=== PATIENT | female | born 1950 | race Caucasian/White ===

== ENCOUNTER 2018-08-10 08:18 | Day surgery (SDC) | payer MEDICARE, OTHER, SELFPAY ==
[2018-08-10] MEDS: PROPARACAINE 0.5% OPHTH SOL 2 DROPS EYE-OP (09:14)
[2018-08-10] MEDS: CATARACT EYE COMPOUND (10 DROPS/SYRINGE) 3 DROPS EYE-OP ×3 (09:16→09:31)
[2018-08-10 09:24] VITALS: BP 141/78; PULSE 59; RESP 14; TEMP 36.5; O2SAT 99; BMI 25.9
--- NOTE | 2018-08-10 10:05 | PM.PREOP ---
Pre-operative Note Interval Note History & Physical reviewed/Exam performed by Physician: No Changes to H&P: No
--- NOTE | 2018-08-10 10:07 | P.OP_ITS ---
Operative Date/Time/Diagnoses Pre-op diagnosis: Nuclear Cataract Left eye Post-op diagnosis: same Procedure & Clinicians Surgeon: Walt Salguero Anesthesia Type: MAC +/- and Sedation Operative Notes Procedure in detail: Patient brought to the operating suite. Tetracaine drops placed in the left eye. The marking instrument was used to jayda the vertical and horizontal meridians. Patient was prepped and draped in sterile manner. Wire lid speculum was placed in the eye. The marking instrument was used to jayda the 5 degree meridian. Betadine drops were placed on the eye. This was irrigated. Lidocaine jelly was placed on the eye. A paracentesis port was created with a side-port blade. 0.1 mL 1% preservative free lidocaine was injected into the anterior chamber. The anterior chamber was deepened with viscoelastic. 2.6 mm keratome was used to create a temporal clear corneal incision. Cystotome and Utrata forceps were used to create continuous tear capsulorrhexis. Balanced salt solution was used to hydro dissect the nucleus. The phacoemulsification handpiece was inserted and the nucleus was removed using the stop and chop technique. The irrigation aspiration handpiece was inserted and the remaining cortex was removed. Anterior chamber was deepened with viscoelastic. An Griffin [id number] intraocular lens with a power of 18.5 was injected into the capsular bag. Irrigation aspiration handpiece was inserted and the remaining viscoelastic was removed. The lens was rotated to the 5 degree meridian. Incision was hydrated with balanced salt solution and found to be leak free with pressure with Weck- Siobhan sponges. 0.1 mL Vigamox injected anterior chamber. 0.3 mL Kenalog 10 mg was injected subconjunctivally. Lid speculum was removed. The patient left the operating room in excellent condition. Complications: none Condition: stable Disposition: same day surgery
[2018-08-10] MEDS: MOXIFLOXACIN OPHTH DROPS 3 ML BOTTLE 2 DROPS INJ (10:19)
[2018-08-10] MEDS: PHENYLEPHRINE/LIDOCAINE VIAL (OR) 0.2 ML EYE-OP (10:19)
[2018-08-10] MEDS: CHONDROIDTIN/SOD HYALURONATE 1.05 ML SYRINGE INTRAOCULA (10:20)
[2018-08-10] MEDS: TRIAMCINOLONE 50 MG/5 ML VIAL INJ (10:20)
[2018-08-10] MEDS: TETRACAINE 0.5% OPHTH DROPS 4 ML 2 DROPS EYE-OP (10:21)
[2018-08-10] MEDS: LIDOCAINE JELLY 2% 5 ML 1 APPLIC TOP (10:21)
[2018-08-10] MEDS: BALANCED SALT IRRIG SOLN NO.2 500 ML, EPINEPHrine 1 MG IRR (10:21)
[2018-08-10 10:32] VITALS: BP 126/73; PULSE 57; RESP 16; TEMP 36.7; O2SAT 97
== END 2018-08-10 10:45 | disposition home or self-care (01) ==
LOC: OR 08:22
PROVIDERS: PCP Family Medicine; Visit Provider Ophthalmology
DX: H25.12 Age-related nuclear cataract, left eye (principal)
CPT/HCPCS: J0171; J2250; J3010; J3301; V2787

== ENCOUNTER 2018-08-24 06:34 | Day surgery (SDC) | payer MEDICARE, OTHER, SELFPAY ==
[2018-08-24] MEDS: PROPARACAINE 0.5% OPHTH SOL 2 DROPS EYE-OP (07:05)
[2018-08-24 07:12] VITALS: BP 125/74; PULSE 56; RESP 20; TEMP 36.9; O2SAT 97; BMI 25.0
[2018-08-24] MEDS: CHONDROIDTIN/SOD HYALURONATE 1.05 ML SYRINGE INTRAOCULA (07:59)
[2018-08-24] MEDS: LIDOCAINE JELLY 2% 5 ML 1 APPLIC TOP (07:59)
[2018-08-24] MEDS: MOXIFLOXACIN OPHTH DROPS 3 ML BOTTLE 2 DROPS INJ (08:00)
[2018-08-24] MEDS: PHENYLEPHRINE/LIDOCAINE VIAL (OR) 0.2 ML EYE-OP (08:01)
[2018-08-24] MEDS: TETRACAINE 0.5% OPHTH DROPS 4 ML 2 DROPS EYE-OP (08:01)
[2018-08-24] MEDS: TRIAMCINOLONE 50 MG/5 ML VIAL INJ (08:02)
[2018-08-24] MEDS: BALANCED SALT IRRIG SOLN NO.2 500 ML, EPINEPHrine 1 MG IRR (08:02)
--- NOTE | 2018-08-24 08:14 | P.OP_ITS ---
Operative Date/Time/Diagnoses Pre-op diagnosis: Nuclear cataract right eye Procedure & Clinicians Procedure: Cataract Surgery Same procedure as scheduled: Yes Surgeon: Walt Salguero Anesthesia Type: MAC +/- and Sedation Operative Notes Procedure in detail: Patient brought to the operating suite. Tetracaine drops placed in the right eye. Marking instrument was used to jayda the vertical and horizontal meridian. Patient was prepped and draped in sterile manner. Wire lid speculum was placed in the eye. Marking instrument was used to jayda the 170 degree meridian. Betadine drops were placed on the eye. This was irrigated. Lidocaine jelly was placed on the eye. A paracentesis port was created with a side-port blade. 0.1 mL 1% preservative free lidocaine was injected into the anterior chamber. The anterior chamber was deepened with viscoelastic. 2.6 mm keratome was used to create a temporal clear corneal incision. Cystotome and U trata forceps were used to create continuous tear capsulorrhexis. Balanced salt solution was used to hydro dissect the nucleus. The phacoemulsification handpiece was inserted and the nucleus was removed using the stop and chop technique. The irrigation aspiration handpiece was inserted and the remaining cortex was removed. Anterior chamber was deepened with viscoelastic. An Griffin [id number] intraocular lens with a power of 19.0 was injected into the capsular bag. Irrigation aspiration handpiece was inserted and the remaining viscoelastic was removed. The lens was rotated to the 170 degree meridian. Incision was hydrated with balanced salt solution and found to be leak free with pressure with Weck-Siobhan sponges. 0.1 mL Vigamox injected anterior chamber. 0.3 mL Kenalog 10 mg was injected subconjunctivally. Lid speculum was removed. The patient left the operating room in excellent condition. Complications: none Condition: stable Disposition: same day surgery
--- NOTE | 2018-08-24 08:14 | PM.PREOP ---
Pre-operative Note Interval Note History & Physical reviewed/Exam performed by Physician: No Changes to H&P: No
[2018-08-24 08:16] VITALS: BP 122/74; PULSE 60; RESP 15; TEMP 36.3; O2SAT 97
== END 2018-08-24 08:30 | disposition home or self-care (01) ==
PROVIDERS: PCP Family Medicine; Visit Provider Ophthalmology
DX: H25.11 Age-related nuclear cataract, right eye (principal)
CPT/HCPCS: J0171; J2250; J2704; J3010; J3301; V2787

== ENCOUNTER → 2018-10-08 14:56 | Outpatient (CLI) | payer MEDICARE, OTHER, SELFPAY ==
--- NOTE | 2018-10-08 | DI.MG.S_ITS ---
BILATERAL DIGITAL SCREENING MAMMOGRAM 3D/2D WITH CAD: 10/08/2018 CLINICAL: Routine screening. Family history of breast cancer. Comparison is made to exams dated: 10/06/2017 mammogram, 08/28/2016 mammogram, and 05/15/2015 mammogram - [facility]. The tissue of both breasts is heterogeneously dense. This may lower the sensitivity of mammography. Current study was also evaluated with a Computer Aided Detection (CAD) system. No significant masses, calcifications, or other findings are seen in either breast. There has been no significant interval change. IMPRESSION: NEGATIVE There is no mammographic evidence of malignancy. A 1 year screening mammogram is recommended. This exam was interpreted at Station ID: [id number]. NOTE: For mammograms, a report in lay terms will be sent to the patient. Approximately 15% of breast malignancies will not be visualized mammographically. In the management of a palpable breast mass, a negative mammogram must not discourage biopsy of a clinically suspicious lesion. Electronically Signed By: Vy sousa/loreta:10/08/2018 15:19:14 letter sent: Normal Exam ACR BI-RADS Category 1: Negative 3341F
== END ==
PROVIDERS: PCP Family Medicine; Visit Provider Family Medicine
DX: Z12.31 Encounter for screening mammogram for malignant neoplasm of breast (principal); Z80.3 Family history of malignant neoplasm of breast
CPT/HCPCS: 77063; 77067

== ENCOUNTER → 2018-12-15 10:15 | Outpatient (CLI) | payer MEDICARE, OTHER, SELFPAY ==
--- NOTE | 2018-12-15 | DI.RAD.S_ITS ---
PROCEDURE: XR LUMBAR SPINE 2-3V INDICATIONS: LEFT SACROILIAC JOINT PAIN, SCIATICA TECHNIQUE: 3 views of the lumbar spine were acquired. COMPARISON: [facility], CT, ABDOMEN/PELVIS WITH CONTRAST, 09/30/2013, 9:44. [facility], CR, CHEST 1 VIEW, 12/22/2013, 12:51. [facility], CR, XR PELVIS WITH LATERAL HIP LEFT, 02/23/2018, 8:36. FINDINGS: Bones: 5 [id number] vertebrae are present. There is normal bony alignment. Moderate L5-S1 degenerative disc disease is present, facet osteoarthritis at this level also is moderate and more superiorly there is only mild degenerative change. No vertebral body compression fractures. No suspicious bony lesions. Soft tissues: Overlying bowel gas pattern is normal. No suspicious soft tissue calcifications. IMPRESSION: No trauma found. No sacroiliac abnormality identified other than age related mild degeneration. As noted above at the lower lumbosacral spine there is moderate degenerative disc disease and facet osteoarthritis, chronic in appearance. Dictated by: John Ruiz M.D. on 12/15/2018 at 12:32 Approved by: John Ruiz M.D. on 12/15/2018 at 12:33
== END ==
PROVIDERS: PCP Internal Medicine; Visit Provider Internal Medicine
DX: M53.3 Sacrococcygeal disorders, not elsewhere classified (principal); M51.37 Other intervertebral disc degeneration, lumbosacral region; M47.817 Spondylosis without myelopathy or radiculopathy, lumbosacral region
CPT/HCPCS: 72100

== ENCOUNTER → 2020-03-05 12:19 | Outpatient (CLI) | payer MEDICARE, OTHER, SELFPAY ==
--- NOTE | 2020-03-05 12:23 | DI.RAD.S_ITS ---
PROCEDURE: XR FOOT RT MIN 3V INDICATIONS: RIGHT ANKLE/RIGHT FOOT PAIN TECHNIQUE: 3 bone views of the foot were acquired. COMPARISON: None. FINDINGS: Bones: No fracture. Diffuse interphalangeal and 1st MTP joint degeneration. There is also diffuse midfoot and hindfoot joint degeneration. Plate and screw fixation of the calcaneus. Soft tissues: No tibiotalar joint effusion. Achilles tendon appears normal. IMPRESSION: Diffuse right foot osteoarthritis and postsurgical changes as above Dictated by: Marquis Alvarez M.D. on 03/05/2020 at 13:56 Approved by: Marquis Alvarez M.D. on 03/05/2020 at 13:58
--- NOTE | 2020-03-05 12:23 | DI.RAD.S_ITS ---
PROCEDURE: XR ANKLE RT 2V INDICATIONS: RIGHT ANKLE/FOOT PAIN TECHNIQUE: 3 views of the ankle were acquired. COMPARISON: None. FINDINGS: Bones: No fracture. Plate and screw fixation of the calcaneus. Hardware appears intact. Expected postoperative alignment. No evidence of hardware loosening. Midfoot and hindfoot joint degeneration and spurring. Possibly ununited osteophyte seen at the dorsal aspect of the navicular. Soft tissues: No tibiotalar joint effusion. Achilles tendon appears normal. IMPRESSION: Postoperative and degenerative changes as above. Dictated by: Marquis Alvarez M.D. on 03/05/2020 at 13:11 Approved by: Marquis Alvarez M.D. on 03/05/2020 at 13:47
== END ==
PROVIDERS: PCP Internal Medicine; Referring Provider Internal Medicine; Visit Provider Internal Medicine
DX: M25.571 Pain in right ankle and joints of right foot (principal); M19.071 Primary osteoarthritis, right ankle and foot
CPT/HCPCS: 73610; 73630

== ENCOUNTER → 2020-03-28 16:29 | Outpatient (CLI) | payer MEDICARE, OTHER, SELFPAY ==
--- NOTE | 2020-03-28 | DI.MG.S_ITS ---
BILATERAL DIGITAL SCREENING MAMMOGRAM 3D/2D WITH CAD: 03/28/2020 CLINICAL: Routine screening. Family history of breast cancer. Comparison is made to exams dated: 10/08/2018 mammogram, 10/06/2017 mammogram, 09/09/2016 mammogram, and 08/28/2016 mammogram - [facility]. The tissue of both breasts is heterogeneously dense. This may lower the sensitivity of mammography. Current study was also evaluated with a Computer Aided Detection (CAD) system. There is an oval equal density focal asymmetry with an obscured and circumscribed margin in the right breast at 12 o'clock anterior depth. No other significant masses, calcifications, or other findings are seen in either breast. IMPRESSION: INCOMPLETE: NEEDS ADDITIONAL IMAGING EVALUATION The oval equal density focal asymmetry in the right breast is indeterminate. Mediolateral and spot compression views as well as additional views with possible ultrasound are recommended. This exam was interpreted at Station ID: [id number]. NOTE: For mammograms, a report in lay terms will be sent to the patient. Approximately 15% of breast malignancies will not be visualized mammographically. In the management of a palpable breast mass, a negative mammogram must not discourage biopsy of a clinically suspicious lesion. Electronically Signed By: Thong schultz/loreta:03/28/2020 17:05:31 letter sent: Additional Imaging Needed ACR BI-RADS Category 0: Incomplete 3340F
== END ==
PROVIDERS: PCP Internal Medicine; Referring Provider Internal Medicine; Visit Provider Internal Medicine
DX: Z12.31 Encounter for screening mammogram for malignant neoplasm of breast (principal); Z80.3 Family history of malignant neoplasm of breast
CPT/HCPCS: 77063; 77067

== ENCOUNTER → 2020-08-27 08:40 | Outpatient (CLI) | payer MEDICARE, OTHER, SELFPAY ==
--- NOTE | 2020-08-27 | DI.US.S_ITS ---
PROCEDURE: US BREAST RT LIMITED COMPARISON: None. INDICATIONS: ABNORMAL MAMMOGRAM FINDINGS: IMPRESSION: Dictated by: Reinier Ko M.D. on 08/27/2020 at 11:07 Approved by: Reinier Ko M.D. on 08/27/2020 at 11:15
--- NOTE | 2020-08-27 | DI.MG.S_ITS ---
UNILATERAL RIGHT DIGITAL DIAGNOSTIC MAMMOGRAM 3D/2D WITH ADDITIONAL VIEWS: 08/27/2020 CLINICAL: Additional evaluation requested from prior study. Comparison is made to exams dated: 03/28/2020 mammogram, 10/08/2018 mammogram, and 10/06/2017 mammogram - [facility]. The tissue of right breast is heterogeneously dense. This may lower the sensitivity of mammography. There is a 0.6 cm x 1 cm oval asymmetry with a circumscribed margin in the right breast at 2 o'clock middle depth 7 cm from the nipple. This is seen in additional views. No other significant masses or calcifications are seen in the breast. IMPRESSION: INCOMPLETE: NEEDS ADDITIONAL IMAGING EVALUATION The 0.6 cm x 1 cm oval asymmetry in the right breast is indeterminate. An ultrasound is recommended. This exam was interpreted at Station ID: [id number]. NOTE: For mammograms, a report in lay terms will be sent to the patient. Approximately 15% of breast malignancies will not be visualized mammographically. In the management of a palpable breast mass, a negative mammogram must not discourage biopsy of a clinically suspicious lesion. Electronically Signed By: Reinier Ko acr/:08/27/2020 10:11:22 letter sent: Additional Imaging Needed ACR BI-RADS Category 0: Incomplete 3340F
--- NOTE | 2020-08-27 10:12 | DI.US.S_ITS ---
At the request of: PHILLY KOCH Procedure: US breast RT limited ULTRASOUND OF RIGHT BREAST: 08/27/2020 CLINICAL: Patient returns today to evaluate a focal asymmetry in the right breast. Comparison is made to exams dated: 08/27/2020 mammogram, 03/28/2020 mammogram, 10/08/2018 mammogram, 10/06/2017 mammogram, and 09/09/2016 mammogram - [facility]. Color flow, real-time, and Doppler ultrasound of the right breast were performed. There is a 0.5 cm x 0.4 cm oval cyst in the right breast at 1 o'clock posterior depth 5 cm from the nipple. This correlates smaller than estimated on mammography. IMPRESSION: PROBABLY BENIGN The 0.5 cm x 0.4 cm oval cyst in the right breast is probably benign. Follow-up mammogram and ultrasound in 6 months is recommended to ensure stability of both the US and Mammogram findings. A follow-up ultrasound in 6 months at the time of expected annual mammogram is recommended to demonstrate stability. This exam was interpreted at Station ID: [id number]. Electronically Signed By: Reinier Ko acr/:08/27/2020 11:15:40 letter sent: Followup Recommended Ultrasound BI-RADS: 3 Probably benign
== END ==
PROVIDERS: PCP Internal Medicine; Referring Provider Internal Medicine; Visit Provider Internal Medicine
DX: R92.8 Other abnormal and inconclusive findings on diagnostic imaging of breast (principal); N60.01 Solitary cyst of right breast
CPT/HCPCS: 76642; 77065; G0279

== ENCOUNTER → 2021-03-22 08:38 | Outpatient (CLI) | payer MEDICARE, OTHER, SELFPAY ==
--- NOTE | 2021-03-22 | DI.MG.S_ITS ---
BILATERAL DIGITAL DIAGNOSTIC MAMMOGRAM 3D/2D SHORT-TERM FOLLOW-UP: 03/22/2021 CLINICAL: Short term follow up of the right breast, due for bilateral imaging. Comparison is made to exams dated: 08/27/2020 mammogram, 03/28/2020 mammogram, and 10/08/2018 mammogram - [facility]. The tissue of both breasts is heterogeneously dense. This may lower the sensitivity of mammography. There is an 8 mm round low density cyst with a circumscribed margin in the right breast at 11 o'clock posterior depth. This is seen in additional views. This is more prominent. No other significant masses, calcifications, or other findings are seen in either breast. IMPRESSION: INCOMPLETE: NEEDS ADDITIONAL IMAGING EVALUATION The 8 mm round low density cyst in the right breast remains indeterminate. An ultrasound is recommended. This was performed immediately following this exam. This exam was interpreted at Station ID: [id number]. NOTE: For mammograms, a report in lay terms will be sent to the patient. Approximately 15% of breast malignancies will not be visualized mammographically. In the management of a palpable breast mass, a negative mammogram must not discourage biopsy of a clinically suspicious lesion. Electronically Signed By: Carmela toure/:03/22/2021 11:51:23 ACR BI-RADS Category 0: Incomplete 3340F
--- NOTE | 2021-03-22 08:40 | DI.RAD.S_ITS ---
PROCEDURE: XR DEXA AXIAL SKELETON INDICATIONS: FOLLOW UP COMPARISON: [facility], CR, DEXA AXIAL SKELETON, 09/28/2007, 15:30. FINDINGS: This blank DEXA report has been sent in error by the PACS system. The correct and complete report will be forthcoming in 1-2 days. Thank you for your patience and understanding. Dictated by: Serafin Rojas M.D. on 03/22/2021 at 12:09 Approved by: Serafin Rojas M.D. on 03/22/2021 at 12:09
--- NOTE | 2021-03-22 08:40 | DI.US.S_ITS ---
ULTRASOUND OF RIGHT BREAST: 03/22/2021 CLINICAL: Patient returns for a 6 month follow up of the right breast. Comparison is made to exams dated: 08/27/2020 ultrasound, 08/27/2020 mammogram, 03/28/2020 mammogram, 10/08/2018 mammogram, 10/06/2017 mammogram, and 09/09/2016 mammogram - [facility]. Color flow and real-time ultrasound of the right breast were performed. Davis scale images of the real-time examination were reviewed. There is a stable 0.5 cm x 0.5 cm x 0.5 cm round cyst in the right breast at 1 o'clock posterior depth 3 cm from the nipple. This round cyst displays an echogenic boundary and posterior acoustic enhancement. This probably correlates with mammography findings of 11:00 cyst. Color flow imaging demonstrates that there is no vascularity present. IMPRESSION: PROBABLY BENIGN The stable 0.5 cm cyst in the right breast most likely is a simple cyst, but difficult to determine given depth in tissue, but is probably benign. A follow-up right ultrasound in 6 months is recommended to demonstrate continued stability. Findings and recommendations were conveyed to the patient at time of exam. This exam was interpreted at Station ID: [id number]. Electronically Signed By: Carmela toure/:03/22/2021 11:57:45 letter sent: Followup Recommended Ultrasound BI-RADS: 3 Probably benign
== END ==
PROVIDERS: PCP Internal Medicine; Referring Provider Internal Medicine; Visit Provider Internal Medicine
DX: N60.01 Solitary cyst of right breast (principal); R92.8 Other abnormal and inconclusive findings on diagnostic imaging of breast; M85.852 Other specified disorders of bone density and structure, left thigh; Z78.0 Asymptomatic menopausal state
CPT/HCPCS: 76642; 77066; 77080; G0279

== ENCOUNTER → 2021-09-13 08:28 | Outpatient (CLI) | payer MEDICARE, OTHER, SELFPAY ==
--- NOTE | 2021-09-13 | DI.US.S_ITS ---
ULTRASOUND OF RIGHT BREAST: 09/13/2021 CLINICAL: 6 month follow-up of cysts. Comparison is made to exams dated: 03/22/2021 mammogram, 03/22/2021 ultrasound, 08/27/2020 ultrasound, and 08/27/2020 mammogram - [facility]. Color flow, Doppler, and continuous wave Doppler ultrasound of the right breast were performed. There is a stable benign 0.5 cm x 0.5 cm x 0.5 cm round cyst in the right breast at 1 o'clock posterior depth 3 cm from the nipple. This round cyst displays an echogenic boundary and posterior acoustic enhancement. This correlates with mammography findings. Color flow imaging demonstrates that there is no vascularity present. IMPRESSION: BENIGN There is no sonographic evidence of malignancy. The stable 0.5 cm x 0.5 cm x 0.5 cm round cyst in the right breast is consistent with a simple cyst and is benign. Return to annual mammogram screening schedule is recommended. This exam was interpreted at Station ID: [id number]. Electronically Signed By: Reinier Ko acr/:09/13/2021 09:03:51 letter sent: Normal Exam Ultrasound BI-RADS: 2 Benign
== END ==
PROVIDERS: PCP Internal Medicine; Referring Provider Internal Medicine; Visit Provider Internal Medicine
DX: R92.8 Other abnormal and inconclusive findings on diagnostic imaging of breast (principal); N60.01 Solitary cyst of right breast
CPT/HCPCS: 76642

== ENCOUNTER → 2021-10-15 15:17 | Outpatient (CLI) | payer MEDICARE, OTHER, SELFPAY ==
--- NOTE | 2021-10-15 | DI.RAD.S_ITS ---
PROCEDURE: XR KNEE LT 3V INDICATIONS: LEFT KNEE PAIN TECHNIQUE: 3 views of the knee were acquired. COMPARISON: None. FINDINGS: Bones: No fractures or dislocations. No suspicious bony lesions. There is moderate bilateral medial as well as mild lateral and left patellofemoral compartment narrowing. Minimal periarticular osteophytes are noted. No erosions. Chondrocalcinosis is present. Soft tissues: Mild joint effusion. No suspicious soft tissue calcifications. IMPRESSION: Arthritic changes most severe medially as above. Dictated by: Gema Randle M.D. on 10/15/2021 at 17:34 Approved by: Gema Randle M.D. on 10/15/2021 at 17:35
== END ==
PROVIDERS: PCP Internal Medicine; Referring Provider Internal Medicine; Visit Provider Internal Medicine
DX: M11.262 Other chondrocalcinosis, left knee (principal); M25.562 Pain in left knee
CPT/HCPCS: 73562

== ENCOUNTER → 2022-03-24 07:52 | Outpatient (CLI) | payer MEDICARE, OTHER, SELFPAY ==
--- NOTE | 2022-03-24 | DI.MG.S_ITS ---
BILATERAL DIGITAL SCREENING MAMMOGRAM 3D/2D WITH CAD: 03/24/2022 CLINICAL: Routine screening. Family history of breast cancer. Comparison is made to exams dated: 09/13/2021 ultrasound, 03/22/2021 mammogram, 08/27/2020 mammogram, 03/28/2020 mammogram, and 10/08/2018 mammogram - [facility]. Both breasts are heterogeneously dense, which may obscure small masses (category c / 51-75% glandular tissue). Current study was also evaluated with a Computer Aided Detection (CAD) system. No significant masses, calcifications, or other findings are seen in either breast. There has been no significant interval change. IMPRESSION: NEGATIVE There is no mammographic evidence of malignancy. A 1 year screening mammogram is recommended. Based on the Tyrer Cuzick model (a risk assessment model) the patient's lifetime risk is 7.8% and her 10 year risk is 6.4%. According to the ACR, ACS, and NCCN guidelines, an annual breast MRI exam along with mammogram is recommended if the patient's lifetime risk is 20% or greater. This exam was interpreted at Station ID: [id number]. NOTE: For mammograms, a report in lay terms will be sent to the patient. Approximately 15% of breast malignancies will not be visualized mammographically. In the management of a palpable breast mass, a negative mammogram must not discourage biopsy of a clinically suspicious lesion. Electronically Signed By: Vy sousa/loreta:03/24/2022 09:03:52 letter sent: Normal Exam ACR BI-RADS Category 1: Negative 3341F
== END ==
PROVIDERS: PCP Family Medicine; Referring Provider Family Medicine; Visit Provider Family Medicine
DX: Z12.31 Encounter for screening mammogram for malignant neoplasm of breast (principal); Z80.3 Family history of malignant neoplasm of breast
CPT/HCPCS: 77063; 77067

== ENCOUNTER → 2022-10-20 14:51 | Outpatient (CLI) | payer MEDICARE, OTHER, SELFPAY ==
[2022-10-20 15:30] LABS: BUN Creatinine Ratio 17.2 (6-22); Blood Urea Nitrogen 15 mg/dL (7-17); Calcium 8.6 mg/dL (8.4-10.2); Carbon Dioxide 27 mmol/L (22-32); Chloride 105 mmol/L (98-107); Estimated Glomerular Filt Rate > 60 mL/min (>60); Glucose 128 mg/dL (80-110); HEMOLYSIS 16 (0-50); Potassium 3.7 mmol/L (3.4-5.1); Sodium 138 mmol/L (137-145)
[2022-10-20 15:33] LABS: C-Reactive Protein Quant 1.5 mg/dL (<1.0)
== END ==
PROVIDERS: PCP Family Medicine; Referring Provider Internal Medicine Gastroenterology; Visit Provider Internal Medicine Gastroenterology
DX: R19.7 Diarrhea, unspecified (principal); R10.10 Upper abdominal pain, unspecified; K50.90 Crohn's disease, unspecified, without complications
CPT/HCPCS: 36415; 80048; 86140

== ENCOUNTER → 2022-10-21 10:50 | Outpatient (CLI) | payer MEDICARE, OTHER, SELFPAY ==
[2022-10-24 18:26] LABS: Calprotectin, Stool 883 ug/g (0-120)
== END ==
PROVIDERS: PCP Family Medicine; Referring Provider Internal Medicine Gastroenterology; Visit Provider Internal Medicine Gastroenterology
DX: R19.7 Diarrhea, unspecified (principal); R10.10 Upper abdominal pain, unspecified
CPT/HCPCS: 83993

== ENCOUNTER → 2022-10-21 10:55 | Outpatient (CLI) | payer MEDICARE, OTHER, SELFPAY ==
--- NOTE | 2022-10-21 | DI.CT.S_ITS ---
PROCEDURE: CT ABDOMEN PELVIS W CON INDICATIONS: upper abdominal pain, diarrhea TECHNIQUE: After the administration of intravenous contrast, axial sections acquired from the lung bases to the pubic symphysis. Coronal and sagittal reformats were performed. For radiation dose reduction, the following was used: automated exposure control, adjustment of mA and/or kV according to patient size. COMPARISON: [facility], CT, ABDOMEN/PELVIS WITH CONTRAST, 09/30/2013, 9:44. FINDINGS: Image quality: Excellent. Lung bases: Unremarkable. Heart: No significant findings. ABDOMEN: Liver: Unremarkable. Gallbladder: Demonstrates a calculus within its lumen and is otherwise within normal limits Biliary ducts: Unremarkable. Pancreas: Unremarkable. Spleen: Unremarkable. Adrenal Glands: Unremarkable. Kidneys and Ureters: Unremarkable. Stomach and Bowel: Stomach is within normal limits. There are multiple mildly distended fluid-filled small bowel loops. Mild to moderate thickening of multiple small bowel loops. Colon is nondistended and demonstrates fluid throughout. Appendix is normal. Peritoneum: No abnormal intraperitoneal fluid. No free air. Ventral Wall: No hernias. Abdominal Nodes: No retroperitoneal or mesenteric adenopathy by size criteria. Multiple mildly prominent subcentimeter mesenteric lymph nodes. Vessels: Aorta and inferior vena cava are normal in size. PELVIS: Pelvic Organs: Uterine fibroids are present, as before. Left adnexal cystic focus as before, currently measuring roughly 38 mm craniocaudal which is increased (previously measuring 25 mm craniocaudal. Bladder: Unremarkable. Pelvic Nodes: No enlarged lymph nodes. Miscellaneous: No hernias are seen. Bones: Unremarkable. IMPRESSION: 1. Findings consistent with gastroenteritis. Reactive mesenteric lymph node enlargement. 2. Increased left adnexal cystic focus. Gynecological surgical consultation recommended. Dictated by: Bennie Thakkar M.D. on 10/21/2022 at 16:11 Transcribed by: KAREN on 10/21/2022 at 16:14 Approved by: Bennie Thakkar M.D. on 10/21/2022 at 16:47
== END ==
PROVIDERS: PCP Family Medicine; Referring Provider Internal Medicine Gastroenterology; Visit Provider Internal Medicine Gastroenterology
DX: D25.9 Leiomyoma of uterus, unspecified (principal); R19.7 Diarrhea, unspecified; R10.10 Upper abdominal pain, unspecified; R59.0 Localized enlarged lymph nodes
CPT/HCPCS: 74177; 83993

== ENCOUNTER → 2022-12-31 10:22 | Outpatient (CLI) | payer MEDICARE, OTHER, SELFPAY ==
--- NOTE | 2022-12-31 | DI.US.S_ITS ---
PROCEDURE: US PELVIC COMPLETE INDICATIONS: LEFT ADNEXAL MASS ON CT OF 10-21-22 TECHNIQUE: Real-time scanning was performed of the pelvic organs, with image documentation. Additional endovaginal scanning was necessary due to incomplete visualization of the adnexal and endometrial structures by transabdominal scanning. COMPARISON: [facility], CT, CT ABDOMEN PELVIS W CON, 10/21/2022, 12:24. FINDINGS: Uterus: Uterus is retroverted and normal in size at 7.7 x 5.0 x 7.5 cm. The myometrium is heterogeneous. The endometrium measures 10 mm combined thickness and is heterogeneous with increased vascularity.. Two uterine fibroids are identified, the 1st in the right anterior uterus common intramural fibroid measuring 5.6 x 4.2 x 5.4 cm. The 2nd within the midline anterior uterus, intramural fibroid measuring 1.4 x 1.3 x 1.0 cm with calcification. Ovaries: The right ovary is not seen. The left ovary measures 2.7 x 3.8 x 2.7 cm, with a calculated ovarian volume of 14.4 cc. Complex left ovarian cyst with thick septations measuring 3.1 x 2.4 x 2.6 cm. Other: No pathologic free abdominal or pelvic fluid. IMPRESSION: 1. Complex left ovarian cyst measuring 3.1 cm. Recommend gynecologic referral and repeat ultrasound in 6-12 weeks. 2. Thickened, heterogeneous and hypervascular endometrium measuring 10 mm. Differential includes endometrial hyperplasia, polyp or carcinoma. Recommend endometrial sampling. 3. Fibroid uterus as above. 4. The right ovary is not visualized. We strive to produce accurate, complete, and clear reports of imaging services. To assist us in improving patient care, this report was composed using standard report templates and voice recognition software. Therefore, it may contain abnormal punctuation, insertions and/or omissions. Occasional wrong-word or sound-alike substitutions may occur. Though we review the report and make efforts to correct it, we do recommend that the report be read carefully in proper context to recognize any text inaccuracies. Dictated by: Dread Kate M.D. on 12/31/2022 at 12:38 Approved by: Dread Kate M.D. on 12/31/2022 at 12:44
== END ==
PROVIDERS: PCP Family Medicine; Referring Provider Obstetrics & Gynecology Gynecologic Oncology; Visit Provider Obstetrics & Gynecology Gynecologic Oncology
DX: D39.12 Neoplasm of uncertain behavior of left ovary (principal); N83.292 Other ovarian cyst, left side; D25.1 Intramural leiomyoma of uterus; R93.89 Abnormal findings on diagnostic imaging of other specified body structures
CPT/HCPCS: 76830; 76856

== ENCOUNTER → 2023-06-22 09:52 | Outpatient (CLI) | payer MEDICARE, OTHER, SELFPAY ==
--- NOTE | 2023-06-22 | DI.MG.S_ITS ---
BILATERAL DIGITAL SCREENING MAMMOGRAM 3D/2D WITH CAD: 06/22/2023 CLINICAL: Routine screening. Family history of breast cancer. Comparison is made to exams dated: 03/24/2022 mammogram, 03/22/2021 mammogram, and 03/28/2020 mammogram - [facility]. Both breasts are heterogeneously dense, which may obscure small masses (category c / 51-75% glandular tissue). Current study was also evaluated with a Computer Aided Detection (CAD) system. There is a new round equal density asymmetry with a circumscribed margin in the right breast at 9 o'clock middle depth. No other significant masses, calcifications, or other findings are seen in either breast. IMPRESSION: INCOMPLETE: NEEDS ADDITIONAL IMAGING EVALUATION The new round equal density asymmetry in the right breast most likely is a cyst and is indeterminate. Additional views with possible ultrasound are recommended. Based on the Tyrer Cuzick model (a risk assessment model) the patient's lifetime risk is 7.3% and her 10 year risk is 6.6%. According to the ACR, ACS, and NCCN guidelines, an annual breast MRI exam along with mammogram is recommended if the patient's lifetime risk is 20% or greater. This exam was interpreted at Station ID: [id number]. NOTE: For mammograms, a report in lay terms will be sent to the patient. Approximately 15% of breast malignancies will not be visualized mammographically. In the management of a palpable breast mass, a negative mammogram must not discourage biopsy of a clinically suspicious lesion. Electronically Signed By: Carmela toure/loreta:06/22/2023 14:31:42 letter sent: Additional Imaging Needed ACR BI-RADS Category 0: Incomplete 3340F
--- NOTE | 2023-06-22 | DI.US.S_ITS ---
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 Additional endovaginal scanning was necessary due to incomplete visualization of the adnexal and endometrial structures by transabdominal scanning. COMPARISON: [facility], US, US PELVIC COMPLETE, 12/31/2022, 10:33. FINDINGS: Uterus: Uterus is retroverted and normal in size at 7.7 x 6.3 x 4.7 cm. The endometrium measures 8.7 mm combined thickness. There is a focus of heterogeneous echogenicity with increased vascularity in the endometrial complex measuring 10 mm, unchanged. Overall endometrium is heterogeneous. Multiple fibroids are identified similar compared to prior exam. A new focus in the right anterior regions identified measuring 1.0 x 1.2 x 0.9 cm. Ovaries: The right ovary measures 1.8 x 1.8 x 0.9 cm, with a calculated ovarian volume of 1.5 cc. The left ovary measures 4.3 x 3.0 x 2.7 cm, with a calculated ovarian volume of 18.2 cc. Tubular cystic structure within the region of the left ovary measures 2.6 cm compared to 3.1 cm on prior exam. Right paraovarian cyst is incidentally noted measuring 1.8 x 1.4 x 1.1 cm. Other: No pathologic free abdominal or pelvic fluid. IMPRESSION: Unchanged appearance of endometrial mass with increased vascularity. As previously noted, endometrial sampling is recommended as malignancy cannot be excluded. Persistent appearance of complex left ovarian cyst minimally decreased in size. We strive to produce accurate, complete, and clear reports of imaging services. To assist us in improving patient care, this report was composed using standard report templates and voice recognition software. Therefore, it may contain abnormal punctuation, insertions and/or omissions. Occasional wrong-word or sound-alike substitutions may occur. Though we review the report and make efforts to correct it, we do recommend that the report be read carefully in proper context to recognize any text inaccuracies. Dictated by: Gema Randle M.D. on 06/22/2023 at 17:18 Approved by: Gema Randle M.D. on 06/22/2023 at 17:21
== END ==
LOC: US 09:54
PROVIDERS: PCP Family Medicine; Referring Provider Obstetrics & Gynecology Gynecologic Oncology; Visit Provider Obstetrics & Gynecology Gynecologic Oncology
DX: Z12.31 Encounter for screening mammogram for malignant neoplasm of breast (principal); R92.333 Mammographic heterogeneous density, bilateral breasts; Z80.3 Family history of malignant neoplasm of breast; D39.12 Neoplasm of uncertain behavior of left ovary; N85.9 Noninflammatory disorder of uterus, unspecified; D25.9 Leiomyoma of uterus, unspecified; N83.292 Other ovarian cyst, left side; N83.201 Unspecified ovarian cyst, right side; R93.89 Abnormal findings on diagnostic imaging of other specified body structures
CPT/HCPCS: 76830; 76856; 77063; 77067

== ENCOUNTER → 2023-07-09 09:29 | Outpatient (CLI) | payer MEDICARE, OTHER, SELFPAY ==
--- NOTE | 2023-07-09 09:32 | DI.MG.S_ITS ---
UNILATERAL RIGHT DIGITAL DIAGNOSTIC MAMMOGRAM 3D/2D WITH ADDITIONAL VIEWS: 07/09/2023 CLINICAL: Additional evaluation requested from prior study. Comparison is made to exams dated: 06/22/2023 mammogram, 03/24/2022 mammogram, and 03/22/2021 mammogram - [facility]. The right breast is heterogeneously dense, which may obscure small masses (category c / 51-75% glandular tissue). There is a 0.6 cm round focal asymmetry in the right breast at 9 o'clock middle depth. No other significant masses or calcifications are seen in the breast. IMPRESSION: INCOMPLETE: NEEDS ADDITIONAL IMAGING EVALUATION The 0.6 cm round focal asymmetry in the right breast most likely is a cyst and is indeterminate. An ultrasound is recommended. Based on the Tyrer Cuzick model (a risk assessment model) the patient's lifetime risk is 7.3% and her 10 year risk is 6.6%. According to the ACR, ACS, and NCCN guidelines, an annual breast MRI exam along with mammogram is recommended if the patient's lifetime risk is 20% or greater. This exam was interpreted at Station ID: [id number]. NOTE: For mammograms, a report in lay terms will be sent to the patient. Approximately 15% of breast malignancies will not be visualized mammographically. In the management of a palpable breast mass, a negative mammogram must not discourage biopsy of a clinically suspicious lesion. Electronically Signed By: Blake Allison M.D. lc/:07/09/2023 11:00:20 Entry: - 07/10/2023 13:12:11 ACR BI-RADS Category 0: Incomplete 3340F
--- NOTE | 2023-07-09 09:32 | DI.US.S_ITS ---
LIMITED ULTRASOUND OF RIGHT BREAST: 07/09/2023 CLINICAL: Patient returns today to evaluate a focal asymmetry in the right breast. Comparison is made to exams dated: 07/09/2023 mammogram, 06/22/2023 mammogram, 03/24/2022 mammogram, 09/13/2021 ultrasound, 03/22/2021 mammogram, and 03/22/2021 ultrasound - [facility]. Color flow and real-time ultrasound of the right breast 9 o'clock region were performed. Davis scale images of the real-time examination were reviewed. There is a benign 0.5 cm x 0.6 cm x 0.4 cm x 4 cm oval cyst in the right breast at 9 o'clock posterior depth. This correlates with mammography findings. IMPRESSION: BENIGN There is no sonographic evidence of malignancy. The 0.5 cm x 0.6 cm x 0.4 cm x 4 cm oval cyst in the right breast is benign. Return to annual mammogram screening schedule is recommended. This exam was interpreted at Station ID: [id number]. Electronically Signed By: Blake Allison M.D. lc/:07/09/2023 11:02:35 letter sent: Normal Exam Ultrasound BI-RADS: 2 Benign
== END ==
PROVIDERS: PCP Family Medicine; Referring Provider Family Medicine; Visit Provider Family Medicine
DX: R92.8 Other abnormal and inconclusive findings on diagnostic imaging of breast (principal); N60.01 Solitary cyst of right breast; R92.331 Mammographic heterogeneous density, right breast
CPT/HCPCS: 76642; 77065; G0279

== ENCOUNTER → 2024-03-09 15:10 | Outpatient (CLI) | payer MEDICARE, OTHER, SELFPAY ==
--- NOTE | 2024-03-09 | DI.RAD.S_ITS ---
PROCEDURE: XR DEXA AXIAL SKELETON INDICATIONS: POST MENOPAUSAL/OSTEOPENIA COMPARISON: [facility], CR, XR DEXA AXIAL SKELETON, 03/22/2021, 11:55. FINDINGS: Lumbar Spine: Bone mineral density is 0.959 g/cm2, T score -0.8, previously -0.6. Left Hip: Bone mineral density 0.812 g/cm2, T score -1.1, -1.6. Left Femoral Neck: Bone mineral density 0.724 g/cm2, T score -1.1, previously -0.9. Right Hip: Bone mineral density is 0.792 g/cm2, T score -1.2, previously -1.6. Right Femoral Neck: Bone mineral density is 0.686 g/cm2, T score -1.5, -1.1 previously. (T score greater or equal to -1.0 to: NORMAL) (T score from -1.1 to -2.4: OSTEOPENIA) (T score less than or equal to -2.5: OSTEOPOROSIS) IMPRESSION: Osteopenia Follow-up guidelines as follows: Osteoporosis: Consider a repeat DEXA and Vertebral Fracture Assessment (VFA) exam in 2 years or sooner if medically necessary, to reassess this patient's status. Osteopenia: Consider a repeat DEXA in 2-3 years to reassess this patient's status, or if there is a new clinical indication. Normal: Consider a repeat DEXA in 5 years or sooner, or if there is a new clinical indication. All treatment decisions require clinical judgment and consideration of individual patient factors, including patient preferences, comorbidities, previous drug use, risk factors not captured in the FRAX model (e.g., frailty, falls, vitamin D deficiency, increased bone turnover, interval significant decline in bone density ) and possible under- or over-estimation of fracture risk by FRAX. In addition, the NOF Guide recommends that FDA-approved medical therapies be considered in postmenopausal women and men age >= 50 years with a: * Hip or vertebral (clinical or morphometric) fracture * T-score of <=-2.5 at the spine or hip * Ten-year fracture probability by FRAX of >= 3% for hip fracture or >=20% for major osteoporotic fracture. People with diagnosed cases of osteoporosis or at high risk for fracture should have regular bone mineral density tests. For patients eligible for Medicare, routine testing is allowed once every 2 years. The testing frequency can be increased to one year for patients who have rapidly progressing disease, those who are receiving or discontinuing medical therapy to restore bone mass, or have additional risk factors. Approved by: Chad Contreras M.D. on 03/10/2024 at 14:15
== END ==
PROVIDERS: PCP Family Medicine; Referring Provider Family Medicine; Visit Provider Family Medicine
DX: Z78.0 Asymptomatic menopausal state (principal); M85.89 Other specified disorders of bone density and structure, multiple sites
CPT/HCPCS: 77080

== ENCOUNTER → 2024-09-26 07:53 | Outpatient (CLI) | payer MEDICARE, OTHER, SELFPAY ==
--- NOTE | 2024-09-26 07:55 | DI.MG.S_ITS ---
MM screening mammo BI: 09/26/2024. BI-RADS: 2 CLINICAL: 74-year old female for bilateral screening mammogram. Tyrer-Cuzick lifetime risk of 3.3%. No personal or first-degree family history of breast cancer. PRIOR EXAMS 07/09/2023, 06/22/2023, 03/24/2022, 09/13/2021, 03/22/2021, 08/27/2020, 03/28/2020, 10/08/2018, 10/06/2017, 09/09/2016, 08/28/2016, 05/15/2015. MAMMOGRAPHY TECHNIQUE: 2D and 3D (tomosynthesis) digital mammographic views obtained, with additional images as needed for full coverage. Current study was also evaluated with a Computer Aided Detection (CAD) system. DENSITY B. There are scattered areas of fibroglandular density. MAMMOGRAPHY FINDINGS Bilateral: Benign-appearing calcifications noted. There are no suspicious masses, calcifications, or other findings in the breast. No significant change from comparison. IMPRESSION: * No evidence of malignancy with benign findings. RECOMMENDATIONS Bilateral * Annual screening mammography. OVERALL ASSESSMENT CATEGORY BI-RADS-2: Benign. The [employer] recommends annual screening mammography beginning at age 40 for women with average risk of breast cancer. ELECTRONICALLY SIGNED: Carmela Sanders M.D. on 09/26/2024 at 05:28:08 PM PT Interpreting Station ID: [id number]
== END ==
LOC: MAMMO 07:54
PROVIDERS: PCP Family Medicine; Referring Provider Family Medicine; Visit Provider Family Medicine
DX: Z12.31 Encounter for screening mammogram for malignant neoplasm of breast (principal)
CPT/HCPCS: 77063; 77067

== ENCOUNTER → 2024-10-18 11:57 | Outpatient (CLI) | payer MEDICARE, OTHER, SELFPAY ==
--- NOTE | 2024-10-18 11:58 | DI.US.S_ITS ---
PROCEDURE: US PELVIC COMPLETE INDICATIONS: Uterine mass TECHNIQUE: Real-time scanning was performed of the pelvic organs, with image documentation. Additional endovaginal scanning was necessary due to incomplete visualization of the adnexal and endometrial structures by transabdominal scanning. COMPARISON: [facility], , US PELVIC COMPLETE, 06/22/2023, 10:07. FINDINGS: Uterus: Uterus is anteverted and normal in size at 8.4 x 5.5 x 8.4 cm. The myometrium is homogeneous. The endometrium measures 12.3 mm combined thickness. Heterogeneous appearance, no definite focal lesions seen at this time. Intramural fibroids on the right measuring 4.4 x 4.8 x 5.3 centimetres. Intramural fibroids on the left anteriorly measuring 1.4 x 1.2 x 1.4 cm, with calcifications. Ovaries: The right ovary was not seen. The left ovary measures 2.9 x 2.8 x 4 cm, with a calculated ovarian volume of 16.5 cc. There is a mildly complex cystic structure in the left ovary measuring 2.6 x 2.5 x 2.3 cm, no solid component. No adnexal masses are seen. Other: No pathologic free abdominal or pelvic fluid. IMPRESSION: 1. Endometrium measures 12.3 mm, no definite focal lesion seen at this time. 2. Uterine fibroids grossly stable in size compared to prior study. 3. Dominant follicle versus small cyst in the left ovary, no suspicious adnexal lesions seen. We strive to produce accurate, complete, and clear reports of imaging services. To assist us in improving patient care, this report was composed using standard report templates and voice recognition software. Therefore, it may contain abnormal punctuation, insertions and/or omissions. Occasional wrong-word or sound-alike substitutions may occur. Though we review the report and make efforts to correct it, we do recommend that the report be read carefully in proper context to recognize any text inaccuracies. Dictated by: Andre Salas M.D. on 10/18/2024 at 18:37 Approved by: Andre Salas M.D. on 10/18/2024 at 18:42
== END ==
LOC: US 11:57
PROVIDERS: PCP Family Medicine; Referring Provider Family Medicine; Visit Provider Family Medicine
DX: D25.1 Intramural leiomyoma of uterus (principal); N85.8 Other specified noninflammatory disorders of uterus
CPT/HCPCS: 76830; 76856

== ENCOUNTER → 2024-10-28 08:19 | Outpatient (CLI) | payer MEDICARE, OTHER, SELFPAY ==
[2024-10-28 09:52] LABS: Cancer Antigen 125 < 5.5 U/mL (0-35)
[2024-11-01 10:37] LABS: Human Epididymis Prot 4 75.7 pmol/L (0.0-96.9)
== END ==
PROVIDERS: PCP Family Medicine; Referring Provider Obstetrics & Gynecology; Visit Provider Obstetrics & Gynecology
DX: N83.8 Other noninflammatory disorders of ovary, fallopian tube and broad ligament (principal)
CPT/HCPCS: 36415; 86304; 86305

== ENCOUNTER 2025-02-02 06:24 | Day surgery (SDC) | payer MEDICARE, OTHER, SELFPAY ==
[2025-01-27 10:33] VITALS: BMI 27.1
[2025-02-02] VITALS (8 sets, daily range): BP systolic 119–153; BP diastolic 68–85; PULSE 59–73; RESP 16; TEMP 36.2–36.6; O2SAT 91–98; BMI 27.1
--- NOTE | 2025-02-02 | PATH_ITS ---
[facility] Accession Number: [id number] No. of containers..02 Tissue . 01 Material submitted: . PART A: endometrium - ENDOMETRIAL MASS PART B: endometrium - ENDOMETRIAL CURETTINGS . 01 Diagnosis: A. ENDOMETRIAL MASS: No well-preserved tissue identified for evaluation. The specimen consists of blood and fibrin. . B. ENDOMETRIAL CURETTINGS: No well-preserved tissue identified for evaluation. The specimen consists of blood and fibrin. [facility] 02/08/2025 1858 Local . 01 Comment: A-B. Due to the scant nature of this biopsy, it may not be entirely corporate representative of this patient's endometrium; additional sampling could be considered, if clinically appropriate. . 01 Electronically signed: . Sharla Gallego MD, Pathologist NPI- [id number] . 01 Gross description: . A. Received in formalin labeled with two patient identifiers and endometrial mass, and consists of a 1.0 x 0.4 x 0.1 cm aggregate of clotted blood which is scraped from a Telfa pad, filtered, and entirely submitted in cassette A1. B. Received in formalin labeled with two patient identifiers and endometrial curettings, and consists of a 0.8 x 0.5 x 0.3 cm aggregate of mccabe-brown tissue, clotted blood, which is filtered and entirely submitted in cassette B1. ([id number]) /[facility] 02/07/2025 0934 Local . 01 Pathologist provided ICD-10: N95.0, N85.00 . 01 CPT . 808570, 023380 Specimen Comment: A courtesy copy of this report has been sent to [phone] Performed at: [address] [id number] MD Thong Morse MD Phone: [phone]
[2025-02-02] MEDS: ACETAMINOPHEN 325 MG TABLET 975 MG PO (06:56)
[2025-02-02] MEDS: LACTATED RINGERS 1,000 ML 42 ML IV (06:56)
--- NOTE | 2025-02-02 07:00 | PM.GYNHP.1 ---
History of Present Illness History of Present Illness Narrative: Jami Lamb is a 75 year old female 1 para 1 with endometrial hyperplasia on ultrasound She presents for a D&C hysteroscopy with resection of polyp versus fibroid [facility] Medical History (Updated 01/27/25 @ 10:33 by Mattie Alex RN) Vitamin B12 deficiency Crohn's disease Surgical History (Updated 01/27/25 @ 10:48 by Mattie Alex RN) Hx of bilateral cataract extraction (2018) History of hysteroscopy (08/30/23) Social History marital status: household members: spouse Smoking Status: Never smoker alcohol intake: current substance use type: does not use Meds Home Medications and Allergies Home Medications ?Medication ?Instructions ?Recorded ?Confirmed ?Type amlodipine 5 mg tablet 5 mg PO DAILY 10/27/24 02/02/25 History losartan 100 mg tablet 100 mg PO DAILY 10/27/24 02/02/25 History cyanocobalamin (vitamin B-12) 1,000 mcg IM Q30D 01/27/25 01/27/25 History 1,000 mcg/mL injection solution Allergies Allergy/AdvReac Type Severity Reaction Status Date / Time Sulfa (Sulfonamide Allergy Mild HIVES Verified 02/02/25 06:36 Antibiotics) Exam Vital Signs (past 8 hours): - 02/02/25 06:44 Temperature 97.2 F L Pulse Rate 73 Respiratory Rate 16 Blood Pressure 135/79 Pulse Oximetry 98 Oxygen Delivery Method Room Air Oxygen Delivery Method Room Air Narrative Exam Narrative: HEENT: No thyromegaly, no anterior cervical or supraclavicular lymphadenopathy. Lungs:Clear to auscultation bilaterally, no wheezes. Cardiovascular: Regular rate and rhythm, no murmurs, rubs, or gallops. Abdomen: No scars. No hepatosplenomegaly. No masses palpable. External genitalia: Normal Vagina: Normal Cervix: Normal Bimanual exam: 8 Week size anteverted uterus. Mobile. Extremities: No edema Assessment & Plan Assessment & Plan narrative: Assessment: 75-year-old 1 para 1 with thickened endometrial lining, possible polyp or fibroid Plan: D&C hysteroscopy with resection of polyp or fibroid The risks, benefits, and alternatives to the procedure were explained to the patient. The risks including bleeding, infection, and uterine perforation. She understands these risks and agrees to proceed. A full par Q was held and consent form was signed. Time-Based Coding :: [TOTAL MINUTES] spent with patient and on the chart (including review of chart, obtaining history, exam, reviewing outside data, placing orders, documenting exam and treatment plan, and counseling patient) on [DATE].
--- NOTE | 2025-02-02 07:03 | PM.PREOP ---
Pre-operative Note Interval Note History & Physical reviewed/Exam performed by Physician: Yes Changes to H&P: No H&P completed within 30 days and has changed as indicated here:: 02/02/25
--- NOTE | 2025-02-02 07:34 | SUR.OPER ---
Lithotomy on padded OR bed, head on pillow, arms secured on padded arm boards at <90 degrees abduction. Legs secured in padded yellow fins stirrups.
--- NOTE | 2025-02-02 09:27 | DI.US.S_ITS ---
PROCEDURE: US ABDOMEN LIMITED INDICATIONS: rule out free fluid in the abdomen TECHNIQUE: Real-time focused scanning was performed of the abdomen, with image documentation. COMPARISON: None. FINDINGS: No ascites is seen. IMPRESSION: No ascites is seen. Dictated by: Dread Kate M.D. on 02/02/2025 at 10:57 Approved by: Dread Kate M.D. on 02/02/2025 at 10:58
--- NOTE | 2025-02-02 09:28 | PM.GYNOP.1 ---
Operative Date/Time/Diagnoses Date of procedure: 02/02/25 Time of procedure: 09:28 Pre-op diagnosis: Thickened endometrial lining, possible polyp or fibroid Post-op diagnosis: same Procedure & Clinicians Procedure: Procedures Operation Date: 02/02/25 07:45 Actual Procedure Side Surgeon p Hysteroscopy D&C with Removal of Mass Katie Arango MD Indications: 75-year-old with thickened endometrial lining on ultrasound, possible polyp or fibroid Surgeon: Katie Arango Anesthesia Type: General (LMA) Operative Notes Findings: 8 week size anteverted uterus Arterial bleeder in the cervix with dilation 1 cm x 0.7 cm lower uterine segment fibroid Closure Type: not applicable Specimen(s): endometrial polyp (Versus fibroid) Applied: none Estimated blood loss (mL): 50 Blood products transfused: none Procedure in detail: After informed consent was obtained, the patient was taken to the operating room where she was placed in the dorsal supine position. After adequate LMA general anesthesia was achieved, she was placed in the dorsal lithotomy position, and prepped and draped in the usual sterile fashion. A time-out was performed. A bivalve speculum was placed into the vagina and the anterior lip of the cervix was grasped with a single-tooth tenaculum. The cervical os was sequentially dilated to the # 8 Hegar dilator. The MyoSure hysteroscope passed easily through the cervical canal. There was significant amount of bleeding on the patient's right side this could be seen through the scope. The scope was advanced past the bleeding but the fallopian tube ostia could never be observed. While retracting the scope, a lower uterine segment/cervical mass was observed. The scope was removed. A narrow polyp forcep was used to remove the mass in 2 pieces. There was a significant amount of blood coming from the cervical os. A 16 gauge Sanchez catheter was threaded up through the cervix and the balloon was inflated with 5 cc of saline. This was left in place for 25 minutes. The Sanchez was then removed and there was minimal blood coming from the cervical os. A decision was made to not proceed further with advancing the camera due to concerns about reactivating the bleeding. The single-tooth tenaculum was removed from the anterior lip of the cervix. The cervix was observed for 10 minutes. There was minimal blood coming from the cervical os. Sponge, lap, and instrument counts were correct x2. The patient tolerated the procedure well, and was taken to PACU in stable condition. A decision was made to get an abdominal ultrasound in the recovery to make sure that there was no uterine perforation. Complications: other (Arterial bleeder along the dilation site) Post-operative Condition: stable Disposition: PACU Plan for aftercare: Home after recovery
--- NOTE | 2025-02-02 09:45 | SUR.PHASEI ---
Bedside ultrasound completed. Patient denies any pain or nausea; no vaginal bleeding noted on second check to desiree-pad; abdomen soft.
== END 2025-02-02 11:16 | disposition home or self-care (01) ==
PROVIDERS: PCP Family Medicine; Referring Provider Obstetrics & Gynecology; Visit Provider Obstetrics & Gynecology
PROC: 0UDB8ZZ Extraction of Endometrium, Via Natural or Artificial Opening Endoscopic (ICD-10-PCS; CPT 58558; principal; 2025-02-02 07:45)
DX: N85.00 Endometrial hyperplasia, unspecified (principal); N95.0 Postmenopausal bleeding
CPT/HCPCS: 58558; 76705; J1885; J2405; J2704